=== PATIENT | male | born 1935 | race Caucasian/White ===

== ENCOUNTER 2018-11-20 12:42 | Emergency (ER) | payer MEDICARE, OTHER ==
[~2018-11-20] VITALS: Ht 177.8 cm; Wt 103.6 kg
--- NOTE | 2018-11-20 12:48 | NUR ---
STAT EKG CALLED TO TRIAGE.
[2018-11-20] MEDS ORDERED: SODIUM CHLORIDE FLUSH 10ML SYR IVF ONE (13:30)
[2018-11-20 13:31] LABS: BASOPHILS # (AUTO) 0.02 x10^3/uL (0-0.1); BASOPHILS % (AUTO) 0 % (0-1); EOSINOPHILS # (AUTO) 0.12 x10^3/uL (0-0.4); EOSINOPHILS % (AUTO) 2 % (1-7); LYMPHOCYTES # (AUTO) 1.31 x10^3/uL (1-3.4); LYMPHOCYTES % (AUTO) 21 % (22-44); MD NO; MEAN CORPUSCULAR HEMOGLOBIN 27.6 pg (27.5-34.5); MEAN CORPUSCULAR HGB CONC 32.5 g/dL (33.2-36.2); MEAN CORPUSCULAR VOLUME 84.9 fL (81-97); MEAN PLATELET VOLUME 8.2 fL (7.4-10.4); MONOCYTES # (AUTO) 0.76 x10^3/uL (0.2-0.8); MONOCYTES % (AUTO) 12 % (2-9); NEUTROPHILS # (AUTO) 4.02 x10^3/uL (1.8-6.8); NEUTROPHILS % (AUTO) 65 % (42-75); PLATELET COUNT 215 x10^3/uL (130-400); RED BLOOD COUNT 4.75 x10^6/uL (4.38-5.82); RED CELL DISTRIBUTION WIDTH 17.1 % (9.4-14.8)
[2018-11-20 13:42] LABS: INTERNATIONAL NORMALIZED RATIO 2.09 (0.93-1.1); PROTHROMBIN TIME 21.3 Seconds (9.6-11.5)
[2018-11-20 13:44] LABS: ALBUMIN 3.9 g/dL (3.4-5.0); ANION GAP 6 mmol/L (5-15); CALCIUM 9.1 mg/dL (8.5-10.1); CHLORIDE 105 mmol/L (98-107); CREATININE 1.17 mg/dL (0.7-1.3)
[2018-11-20 13:47] LABS: TROPONIN I < 0.015 ng/mL (0.000-0.045)
[2018-11-20] MEDS ORDERED: OMNIPAQUE 350 MG/ML, 100ML BOTTLE ONE (14:02)
--- NOTE | 2018-11-20 14:48 | NUR ---
PT RESTING AO4 RETURNED FROM CT FAMILY AT THE [facility]
[2018-11-20 17:07] VITALS: BP 138/74
== END 2018-11-20 17:09 | disposition home or self-care (01) ==
LOC: ED 14:55
DX: R07.89 Other chest pain (principal); I48.91 Unspecified atrial fibrillation; I10 Essential (primary) hypertension; Z87.891 Personal history of nicotine dependence
CPT/HCPCS: 36415; 71045; 71275; 80048; 82040; 83880; 84484; 85025; 85610; 85730; 93005; 99284; Q9967